=== PATIENT | male | born 1970 | race Caucasian/White ===

== ENCOUNTER 2017-03-19 17:17 | Emergency (ER) | payer OTHER ==
[~2017-03-19] VITALS: Ht 185.4 cm; Wt 117.9 kg
[~2017-03-19 17:17] MED LIST: LISINOPRIL 20MG20 MG PO; VICOPROFEN 7.51 TAB PO
--- NOTE | 2017-03-19 17:40 | Emergency Room Report ---
History of Present Illness Time Seen by [id number] Presenting Problem in Triage Pt arrived:Walked Presenting Problem:PT FELL OFF OF A LADDER 7 FEET, LANDING ON BACK. PT LANDED ON BACK AND HAS RIGHT LOWER BACK PAIN AND HAS AN ABRAISION ON THE BACL OF THE HEAD. 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 N Clinical Suspician of Infection? N Mental Status: 1 - Regular (Normal Baseline) Sepsis Risk:Low Sepsis Risk Have you (or family members/close friends) recently traveled outside the [place]? N If Yes, where/when: Have you had exposure to infectious disease within the past month? N TB? Other? Specify: I READ THE ABOVE TRIAGE WITH THE ONLY DIFFERENCE IS THAT HE IS HURTING MORE ON THE RIGHT LOWER RIBS WITH NO SPINOUS PROCESS TENDERNESS. Mr. Liz is 47 years old white male overweight, he was 7 feet above the ground on a ladder when he fell and landed on the RIGHT side of his trunk. He complains of a stinging pain or for the RIGHT lower ribs. He he admits to hitting his head with no loss of consciousness. He denies having neck pain or back pain or lower back pain. His best comfortable position is standing with his knees flexed and leaning on the bed and holding his side. There are no weakness or numbness involving the lower extremities there is no loss of urine or bowel control. There is no chest wall TRAUMA No hematemesis or hemoptysis. Source patient, RN notes reviewed, family Exam Limitations no limitations ALLERGIES Coded Allergies: No Known Allergies (05/03/16) Home Medications Reported Medications LISINOPRIL (Lisinopril) 20 MG PO DAILY History Medical History General CAD? No Angina: No SD: No Hypertension? Yes Hyperlipidemia? No CHF? No DVT? No PE? No COPD? No Asthma? No Anemia? No GERD? No Gastric ulcers? No GI Bleed? No Hernia? No Thyroid Problems? No Hypothyroidism? No CVA? No Seizures? No Diabetes? No Renal Insuffiency? No End Stage Renal Disease? No UTI? No Stones? No BPH? No GB Disease: No Nephritic Syndrome? No Asplenia? No Hepatitis? No Sickle Cell Disease? No Arthritis? No Migraines? No Cataracts? No Glaucoma? No MRSA? No HIV? No TB? No Anxiety? No Depression? No Cancer? No More? No Immunization Hx Ped.Immunizations UTD No DT/Tetanus UNKNOWN Surgical Hx Previous Surgery?Y ADNOIDS LT KNEE RT KNEE Social History Smoking Hx Smoker: Never Smoker Tobacco: No Alcohol Alcohol: No Review of Systems All Other Systems Reviewed and Negative Constitutional no symptoms reported Eyes no symptoms reported ENT no symptoms reported. Respiratory see HPI (RIGT RIB PAIN ) Cardiovascular no symptoms reported Gastrointestinal no symptoms reported Genitourinary no symptoms reported. Musculoskeletal see HPI (NO BACK PAIN) Skin no symptoms reported Psychiatric/Neurological no symptoms reported Physical Exam Vital Signs Vital Signs Date Time Temp Pulse Resp B/P Pulse O2 O2 Flow FiO2 Ox Delivery Rate 03/19 193 16 03/19 1924 94 16 136/70 94 03/19 1812 89 18 145/71 98 03/19 1808 16 03/19 1741 16 03/19 1721 97.6 93 16 155/84 97 - WBC >12,000 or <4,000 or 10% bands? 2 or more SIRS Criteria Met? B/P:155/84 MAP:107 Creatinine >2.0? UA output<0.5ml/kg/hr for 2 hrs? Platelet count >100,000? Lactate >2.0mmol/1? INR >1.2 or PTT > than 60 sec? Evidence of Organ Dysfunction? Provider documented clinical suspician of infection? N Sepsis Criteria Count: 1 Sepsis Risk: Low Sepsis Risk General Appearance normal appearance, WD/WN, no apparent distress Eye Exam - bilateral eye normal exam, bilateral eye PERRL, bilateral eye EOMI Ear, Nose, Throat hearing grossly normal, normal ENT inspection Neck normal inspection (NO SPINOUS PROCESS TENDERNESS), non-tender, supple, full range of motion Respiratory Status Yes: trachea midline, chest symmetrical, non tender chest. No: respiratory distress. Lung Sounds bilateral: normal breath sounds, lungs clear. 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 No Results/Orders Laboratory Tests 03/19/175: Sodium 141, Potassium 3.8, Chloride 103, Carbon Dioxide 30, BUN 21 H, Creatinine 1.6 H, Estimated Creat Clear 94, Estimated GFR (MDRD) 46, Glucose 115 H, Calcium 9.0, Total Bilirubin 0.7, AST 38 H, ALT 53, Alkaline Phosphatase 93, Total Protein 7.9, Albumin 3.9, Globulin 4.0 H, Albumin/ Globulin Ratio 1.0 L, WBC 8.4, RBC 5.49, Hgb 16.4, Hct 47.9, MCV 87.2, RDW 12.5 , Plt Count 251, MPV 7.0 L, Gran % 77.2, Gran # 6.5, Lymphocytes % 16.0, Monocytes % 5.3, Eosinophils % 1.2, Basophils % 0.3, Lymphocytes # 1.3, Monocytes # 0.5, Eosinophils # 0.1, Basophils # 0.0, PUBS MCHC 34.2, MCH 29.8 Current Medication Orders Sig/Lucie Start time Last Medication Dose Route Stop Time Status Admin Ondansetron HCl 0 .STK-MED ONE 03/19 1931 DC .ROUTE Hydromorphone HCl 1 MG ONCE ONE 03/19 1930 DC 03/19 IV 03/19 Hydromorphone HCl 0 .STK-MED ONE 03/19 1930 DC .ROUTE Ondansetron HCl 4 MG ONCE ONE 03/19 1930 DC 03/19 IV 03/19 Morphine Sulfate 2 MG ONCE ONE 03/19 1815 DC 03/19 IV 03/19 Morphine Sulfate 0 .STK-MED ONE 03/19 1805 DC .ROUTE Morphine Sulfate 2 MG ONCE ONE 03/19 1745 DC 03/19 IV 03/19 Ondansetron HCl 4 MG ONCE ONE 03/19 1745 DC 03/19 IV 03/19 Ondansetron HCl 0 .STK-MED ONE 03/19 1740 DC .ROUTE Morphine Sulfate 0 .STK-MED ONE 03/19 1739 DC .ROUTE Sodium Chloride 10 ML PRN PRN 03/19 1730 AC 03/19 IV 03/20 1729 1740 Orders Procedure Date/time Status DIET-NOTHING BY MOUTH 03/[address] ABD & PELVIS W/ CONTRAST 03/[address] ABD/PELVIS REQ 03/[address] SCAN REQUEST 03/19 1738 Complete [id number] VIEWS 03/19 1738 Active URINALYSIS/COMPLETE 03/19 1738 Active CBC WITH AUTO DIFF 03/19 1738 Complete CHEM 12 PROFILE 03/[address] HEAD W/O CONTRAST 03/[address] CERVICAL SPINE W/O CONT. 03/[address] HEAD REQ 03/19 1729 Active IV SALINE LOCK 03/19 1729 Active XRAY/CT/US XRAY/CT/US XRAY rib XR interpretation by reviewed by me Xray Results no fracture seen Departure Departure Time of Disposition 1938 Disposition DC Home or Self Care(routine) Clinical Impression Primary Impression: Multiple transverse process fractures Condition STABLE Additional Instructions I discussed the x rays with MR Liz, He is aware of the fractures, need to observe for radiation to the legs or loss of urine or bowel control. SOA or hemoptysis to return. Rest Ice Hydrocodone follow up with pcp in AM Discharge Counseling Counseled pt/family regarding diagnosis, test results, R/B of controlled subst., medications/RX, home care, follow up needs Prescriptions Current Visit Scripts HYDROCODONE/ACETAMINOPHEN (Hydrocodon-Acetaminoph 7.5-325) 1 TAB PO Q8HP PRN pain #15 TAB ED Critical Care Critical Care No If Critical Care minutes are documented, the time involved in the performance of seperately reportable procedures was not counted toward critical care time documented. I directly delivered medical care to this critically ill and/or injured patient. Timely evaluation and treatment was necessary to address the significant organ system(s) dysfunction present in this patient. at 1942
[2017-03-19 17:45] LABS: HEMOGLOBIN 16.4 g/dL (14.1-18.0); LYMPH # 1.3 K/mm3 (0.7-4.5)
[2017-03-19] MEDS ORDERED: HYDROCODONE-APA1 TA2 PO (19:42)
[2017-03-19 19:55] VITALS: BP 120/74
--- NOTE | 2017-03-20 06:01 | RADIOLOGY REPORT PS360 ---
[id number] VIEWS HISTORY: Right rib and chest pain following injury FALL ORDERING PHYSICIAN: Fernanda Waters MD PATIENT AGE: 47 years COMPARISON: None FINDINGS: A frontal view of the chest shows no acute finding. There is some mild right basilar atelectasis Multiple views of the right ribs were obtained. There are nondisplaced fractures of the right fifth, sixth, seventh, and eighth ribs laterally. IMPRESSION: Nondisplaced right rib fractures. No obvious pneumothorax
--- NOTE | 2017-03-20 06:01 | RADIOLOGY REPORT PS360 ---
CT HEAD W/O CONTRAST HISTORY: Pain following injury, blunt trauma, contusion or hematoma, hit back of head with contusion, FALL ORDERING PHYSICIAN: Fernanda Waters MD PATIENT AGE: 47 years COMPARISON: None TECHNIQUE: Axial images obtained without contrast. Brain and bone windows reviewed. FINDINGS: No midline shift, mass effect, intracranial hemorrhage, hydrocephalus, or extra-axial fluid collection is evident. The calvarium has an unremarkable appearance. No mastoid effusion. There is mild mucosal thickening of the right anterior ethmoids and frontal sinus. IMPRESSION: No acute intracranial findings.
--- NOTE | 2017-03-20 06:04 | RADIOLOGY REPORT PS360 ---
CT CERVICAL SPINE W/O CONT INDICATION: Neck pain following injury, hit back of head with neck pain, contusion FALL ORDERING PHYSICIAN: Fernanda Waters MD PATIENT AGE: 47 years COMPARISON: None TECHNIQUE: Axial images are obtained without contrast. Sagittal and coronal reformatted images are reviewed as well. FINDINGS: Normal alignment. No acute fracture or dislocation. No prevertebral soft tissue swelling. Mild degenerative disc disease C2-C3 with right-sided uncovertebral hypertrophy. Scattered small nodes are present in the neck. Lung apices are clear. IMPRESSION: 1. No acute fracture. 2. Mild cervical spondylosis
--- NOTE | 2017-03-20 06:11 | RADIOLOGY REPORT PS360 ---
CT ABD PELVIS W/ CONTRAST CLINICAL INDICATION: Abdominal pain following blunt trauma, right flank pain FALL ORDERING PHYSICIAN: Fernanda Waters MD PATIENT AGE: 47 years COMPARISON: None TECHNIQUE: Axial images obtained with sagittal and coronal reformats. PROCEDURE: Oral Contrast: None IV Contrast: 75 mL is Isovue-370 IV. FINDINGS: Lower thorax: Small hiatal hernia. ABDOMEN: Liver: No masses or biliary dilatation. Gallbladder: Nondistended. No radio opaque stones. Pancreas: No masses or peripancreatic fluid collections. Spleen: Unremarkable. Adrenals: Unremarkable Kidneys/ureters: 1.7 cm left renal hypodensity compatible with a cyst. Stomach bowel: Mild diverticulosis. No evidence of diverticulitis. Small umbilical hernia containing fat Appendix: No evidence of appendicitis. PELVIS: Reproductive: Unremarkable Bladder: Nondistended. No obvious stones or masses. ABDOMEN & PELVIS: Peritoneum: No abnormal fluid collections. No obvious inflammatory changes. No free air. Lymph nodes: No enlarged lymph nodes apparent. Vasculature: No evidence of abdominal aortic aneurysm. No retroperitoneal hemorrhage evident. Bones: There is a nondisplaced acute right seventh rib fracture laterally. Old rib fractures are present involving the right eighth, ninth, and 10th ribs anterolaterally. There is an acute nondisplaced fracture involving the right L1, L2, and L3 transverse processes. A small screw is present with initial tuberosity on the left. There is mild superior depression of the L2 vertebral body endplate anteriorly possibly old IMPRESSION: 1. Acute nondisplaced fractures of the right seventh rib as well as a right L1, L2, and L3 transverse processes. 2. No acute intra-abdominal or pelvic pathology apparent 3. Other nonacute findings as described above. 4. Probable old compressive/small node changes of L2 superior endplate. MRI may confirm if clinically warranted
[2017-03-23] MEDS ORDERED: COLACE100 MG PO (10:34)
== END 2017-03-19 19:56 | disposition home or self-care (01) ==
LOC: ER 17:17
PROVIDERS: Emergency Medicine
DX: S32.019A Unspecified fracture of first lumbar vertebra, initial encounter for closed fracture (principal); S32.029A Unspecified fracture of second lumbar vertebra, initial encounter for closed fracture; S32.039A Unspecified fracture of third lumbar vertebra, initial encounter for closed fracture; W11.XXXA Fall on and from ladder, initial encounter; Y92.019 Unspecified place in single-family (private) house as the place of occurrence of the external cause; I10 Essential (primary) hypertension; S22.41XA Multiple fractures of ribs, right side, initial encounter for closed fracture
CPT/HCPCS: J2405; Q9967

== ENCOUNTER 2017-03-19 23:07 | Observation (INO) | payer OTHER ==
[~2017-03-19] VITALS: Ht 185.4 cm; Wt 120.8 kg
[~2017-03-19 23:07] MED LIST changes: +HYDROCODONE-APA1 TA2 PO
[2017-03-19 23:10] VITALS: BP 115/71
[2017-03-19 23:27] LABS: HEMOGLOBIN 16.4 g/dL (14.1-18.0); LYMPH # 1.1 K/mm3 (0.7-4.5)
--- NOTE | 2017-03-19 23:51 | Emergency Room Report ---
History of Present Illness Time Seen by [id number] Presenting Problem in Triage Pt arrived:Walked Presenting Problem:WAS SEEN IN ER EARLIER AFTER FALLING 7FT OFF A LADDER. WAS D.C WITH STABLE FX IN THE L1-L3. GOT HOME AND APPROX 2215, HE REPORTED BEING EXTREMELY SOA AND FELT LIKE HE WAS GOING TO PASS OUT. 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 N Clinical Suspician of Infection? N Mental Status: 1 - Regular (Normal Baseline) Sepsis Risk:Possible Sepsis Risk Have you (or family members/close friends) recently traveled outside the [place]? N If Yes, where/when: Have you had exposure to infectious disease within the past month? N TB? Other? Specify: Source patient, RN notes reviewed, family, RN/MD Exam Limitations no limitations Comment This is a 47-year-old gentleman returning to the emergency room after being seen here hours ago, complaining with shortness of breath. Patient was initially seen in this ER after falling off of a roof, 7-8 feet high, while mounting [place] decorations. Patient was initially discharged home with a diagnosis of minimally displaced L1-L2-L3 LEFT lateral transverse processes fracture. stated that he woke up short of breath, worse with deep inspirations, complaining with pain in the LEFT lower ribs. Previous CT scans of head without contrast, cervical spine without contrast and abdomen and pelvis with IV contrast were negative. Rib x-rays previously ordered showed no rib fractures, no pneumothorax. ALLERGIES Coded Allergies: No Known Allergies (03/20/17) Home Medications Active Scripts HYDROCODONE/ACETAMINOPHEN (Hydrocodon-Acetaminoph 7.5-325) 1 TAB PO Q8HP PRN pain #15 TAB Prov: 03/19/17 Reported Medications LISINOPRIL (Lisinopril) 20 MG PO DAILY History Medical History General CAD? No Angina: No [place]: No Hypertension? Yes Hyperlipidemia? No CHF? No DVT? No PE? No COPD? No Asthma? No Anemia? No GERD? No Gastric ulcers? No GI Bleed? No Hernia? No Thyroid Problems? No Hypothyroidism? No CVA? No Seizures? No Diabetes? No Renal Insuffiency? No End Stage Renal Disease? No UTI? No Stones? No BPH? No GB Disease: No Nephritic Syndrome? No Asplenia? No Hepatitis? No Sickle Cell Disease? No Arthritis? No Migraines? No Cataracts? No Glaucoma? No MRSA? No HIV? No TB? No Anxiety? No Depression? No Cancer? No More? No Immunization Hx DT/Tetanus UNKNOWN Surgical Hx Previous Surgery?Y ADNOIDS LT KNEE RT KNEE Social History Smoking Hx Smoker: Never Smoker Tobacco: No Alcohol Alcohol: No Review of Systems All Other Systems Reviewed and Negative Respiratory shortness of breath Cardiovascular chest pain Gastrointestinal abdominal pain (LEFT upper quadrant pain) Physical Exam Vital Signs Vital Signs Date Time Temp Pulse Resp B/P Pulse O2 O2 Flow FiO2 Ox Delivery Rate 03/20 0020 81 03/20 0020 98.1 81 20 114/61 03/20 0020 96 ROOM AIR 03/20 0007 98.1 81 20 114/61 96 2 03/20 0006 81 20 114/61 96 2 03/19 2344 20 03/19 2319 20 03/19 2310 98.1 95 20 115/71 97 2 General Appearance normal appearance, WD/WN, moderate distress Respiratory Status Yes: trachea midline, chest symmetrical, tender on palpation (LEFT lower ribs). No: respiratory distress. Lung Sounds bilateral: normal breath sounds, lungs clear. 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 No Comment 9-case discussed with Dr. Baxter, covering for Dr. Waterman, advised of patient' s presentation and findings, lack of response to oral pain killers previously provided. Dr. Baxter agreeable with hospitalization, plan is to continue IV pain medications and reevaluate in the morning. Patient denies medically stable at this time, and clinically improving. Differential diagnosis: Solid organ injury, lung contusion, pneumothorax, rib fracture, straight laceration, retroperitoneal hemorrhage, anxiety reaction, etc. Care turned over to Dr. Baxter at this time, I will write temporary admission orders per hospital protocol. Upon patient's presentation to floor the unit nurse will contact PCP again in order to obtain full inpatient admission orders. Results/Orders Laboratory Tests 03/19/172319: Sodium 140, Potassium 4.4, Chloride 102, Carbon Dioxide 31, BUN 28 H, Creatinine 1.5 H, Estimated Creat Clear 100, Estimated GFR (MDRD) 50, Glucose 147 H, Calcium 9.2, Total Bilirubin 0.6, AST 31, ALT 47, Alkaline Phosphatase 88, Total Protein 8.0, Albumin 3.9, Globulin 4.1 H, Albumin/Globulin Ratio 1.0 L, Amylase 39, Lipase 125, WBC 14.4 H, RBC 5.59, Hgb 16.4, Hct 48.9, MCV 87.5, RDW 12.6, Plt Count 233, MPV 7.1 L, Gran % 87.2 H, Gran # 13.2 H, Total Counted 100, Lymphocytes % 7.0 L, Monocytes % 5.2, Eosinophils % 0.3, Basophils % 0.3, Neutrophils 90 H, Lymphocytes (Manual) 9 L, Lymphocytes # 1.1, Monocytes (Manual) 1 L, Monocytes # 0.8, Eosinophils # 0.0, Basophils # 0.0, Platelet Estimate NORMAL, Anisocytosis 1+, PUBS MCHC 33.6, MCH 29.4 Current Medication Orders Sig/Lucie Start time Last Medication Dose Route Stop Time Status Admin Cyclobenzaprine HCl 10 MG TIDP PRN 03/20 0015 UNV PO Hydromorphone HCl 1 MG ONCE ONE 03/19 2345 DC 03/19 IV 03/19 2346 234 Morphine Sulfate 4 MG Q2HP PRN 03/19 2345 UNV 03/20 IV 0150 Ondansetron HCl 4 MG Q4HP PRN 03/19 2345 UNV IV Promethazine HCl 12.5 MG Q4HP PRN 03/19 2345 UNV IV Sodium Chloride 1,000 ML .Q8H 03/19 2345 UNV IV Sodium Chloride 25 ML PRN PRN 03/19 2345 UNV IV Hydromorphone HCl 0 .STK-MED ONE 03/19 2342 DC .ROUTE Sodium Chloride 1,000 ML .STK-MED ONE 03/19 2335 DC IV Hydromorphone HCl 1 MG ONCE ONE 03/19 2330 DC 03/19 IV 03/19 2331 231 Ondansetron HCl 4 MG ONCE ONE 03/19 2330 DC 03/19 IV 03/19 2331 2332 Sodium Chloride 10 ML PRN PRN 03/19 2330 AC IV 03/20 231 Sodium Chloride 1,000 ML .Q1H1M 03/19 2330 DC 03/19 IV 03/20 0030 2332 Sodium Chloride 10 ML PRN PRN 03/19 2330 AC IV 03/20 232 Hydromorphone HCl 0 .STK-MED ONE 03/19 2319 DC .ROUTE Ondansetron HCl 0 .STK-MED ONE 03/19 2319 DC .ROUTE Orders Procedure Date/time Status DIET-REGULAR ( TOLERATED) 03/20 B Active CBC WITH AUTO DIFF 03/20 600 Active CHEM 12 PROFILE 03/20 600 Active Decision to admit 03/19 2349 Active CHEST(2 VIEWS-NOT PORTABLE) 03/19 2325 Active LIPASE 03/19 2322 Complete CBC WITH AUTO DIFF 03/19 2322 Complete CHEM 12 PROFILE 03/19 2322 Complete AMYLASE 03/19 2322 Complete IV SALINE LOCK 03/19 2321 Active DIFFERENTIAL-WBC 03/19 2320 Complete ADMIT PATIENT 03/19 UNK Active VITAL SIGNS 03/19 UNK Active POM NURSE MARÍA ELENA HOSE ORDER 03/19 UNK Active CODE STATUS 03/19 UNK Active PATIENT ACTIVITY ORDER 03/19 UNK Active XRAY/CT/US XRAY/CT/US XRAY chest XR interpretation by reviewed by vt Xray Results no infiltrates, normal heart size, normal lung inflation rylee, no pneumothorax Departure Departure Time of Disposition 2350 Disposition Still a Patient Clinical Impression Primary Impression: Intractable low back pain Secondary Impressions: Lumbar transverse process fracture Qualifiers: Encounter type: initial encounter Fracture type: closed Qualified Code: S32.009A - Unspecified fracture of unspecified lumbar vertebra, initial encounter for closed fracture Condition STABLE Referrals Noemí RAMSAY,Ishmael Stephenson (Family) ED Critical Care Critical Care No at 0531
[2017-03-20] VITALS (8 sets, daily range): BP systolic 109–151; BP diastolic 61–93
[2017-03-20 04:29] LABS: NEUTROPHILS 90 % (42-76)
[2017-03-20 06:58] LABS: LYMPH # 1.4 K/mm3 (0.7-4.5); LYMPH % 14.6 % (10-50)
[2017-03-20 07:14] LABS: HEMOGLOBIN 13.9 g/dL (14.1-18.0)
--- NOTE | 2017-03-20 07:44 | PHARMACY CLINIC NOTE ---
Patient Demographics Patient Demographics Admission date: 03/20/17 Date: 03/20/17 Time: 0744 Allergies Coded Allergies: No Known Allergies (03/20/17) HEIGHT- FT: 6 IN: 1.00 K.771 VTE General Information Labs: Laboratory Tests 03/20 03/19 0625 2320 Hematology Hgb (14.1 - 18.0 g/dL) 13.9 L 16.4 Hct (42.0 - 52.0 %) 41.1 L 48.9 Plt Count (142 - 424 K/mm3) 189 233 Disclaimer The following section includes nursing documentation that has been pulled in for pharmacy review. Patient's VTE score: 0 Patient's VTE Risk: VERY LOW RISK Clinical trial participant? No VTE prophylaxis NQF [id number] VTE prophylaxis ordered? Yes Type of prophylaxis/treatment: MARÍA ELENA at 0744
--- NOTE | 2017-03-20 09:05 | HISTORY AND PHYSICAL REPORT ---
Demographics: Admit date: 03/19/17 Chief complaint: back pain PRIMARY DIAGNOSIS: INTRACTABLE LOW BACK PAIN Allergies: Coded Allergies: No Known Allergies (03/20/17) History of present illness: History of present illness: 47-year-old male presented to the ER 2. Patient first reported to the ER status post fall from a stepladder 7-8 foot. Fractures noted to the L1-L2 and L3 and RIGHT seventh rib fracture. Patient was discharged home while homeless sitting in a recliner taken a nap and woke up short of breath and severe pain. Patient presented back to the ER for further workup. Patient was admitted for irretractable pain. No bowel or bladder issues noted Past medical history: Family HX Diabetes No CAD No Hypertension Yes Hyperlipidemia Yes Cancer Yes TB No Immunization HX DT/Tetanus UNKNOWN Flu Refused Pneumonia Never Had TB Test in last year Yes Result Negative General CAD? No Angina: No LA: No Hypertension? Yes Hyperlipidemia? No CHF? No DVT? No PE? No COPD? No Asthma? No Anemia? No GERD? No Gastric ulcers? No GI Bleed? No Hernia? No Thyroid Problems? No Hypothyroidism? No CVA? No Seizures? No Diabetes? No Renal Insuffiency? No UTI? No Stones? No BPH? No GB Disease: No Nephritic Syndrome? No Asplenia? No Hepatitis? No Sickle Cell Disease? No Arthritis? No Migraines? No Cataracts? No Glaucoma? No MRSA? No HIV? No TB? No Anxiety? No Depression? No Cancer? No More? No Past Surgical HX Previous Surgery?Y ADNOIDS LT KNEE RT KNEE Current home meds: Active Scripts HYDROCODONE/ACETAMINOPHEN (Hydrocodon-Acetaminoph 7.5-325) 1 TAB PO Q8HP PRN PAIN #15 TAB Prov: 03/19/17 Reported Medications LISINOPRIL (Lisinopril) 20 MG PO DAILY Social Hx: Smoking HX Tobacco No Are you/the child exposed to second-hand smoke: No Alcohol Alcohol: No Hx of Drug Use Drug Use? No Review of systems: Constitutional No: no symptoms reported. Respiratory see HPI, shortness of breath. Cardiovascular No no symptoms reported Gastrointestinal/Abdominal No no symptoms reported Genitourinary No: no symptoms reported. Musculoskeletal see HPI, back pain, joint pain, joint swelling, muscle pain, muscle stiffness. Skin No: no symptoms reported. Neurological No: no symptoms reported. Exam: Lab data for last 24 hours: Laboratory Tests 03/20/17 0625: Sodium 141, Potassium 4.0, Chloride 105, Carbon Dioxide 31, BUN 27 H, Creatinine 1.2, Estimated Creat Clear 129, Estimated GFR (MDRD) 65, Glucose 102, Calcium 8.4 L, Total Bilirubin 0.7, AST 22, ALT 38, Alkaline Phosphatase 73, Total Protein 6.6, Albumin 3.2 L, Globulin 3.4 H, Albumin/Globulin Ratio 0.9 L, WBC 9.5, RBC 4.73, Hgb 13.9 L, Hct 41.1 L, MCV 86.8, RDW 12.7, Plt Count 189, MPV 7.2 L, Gran % 77.1, Gran # 7.4, Lymphocytes % 14.6, Monocytes % 7.5, Eosinophils % 0.6, Basophils % 0.2, Lymphocytes # 1.4, Monocytes # 0.7, Eosinophils # 0.1, Basophils # 0.0, PUBS MCHC 33.3, MCH 28.9 03/19/170: Sodium 140, Potassium 4.4, Chloride 102, Carbon Dioxide 31, BUN 28 H, Creatinine 1.5 H, Estimated Creat Clear 100, Estimated GFR (MDRD) 50, Glucose 147 H, Calcium 9.2, Total Bilirubin 0.6, AST 31, ALT 47, Alkaline Phosphatase 88, Total Protein 8.0, Albumin 3.9, Globulin 4.1 H, Albumin/Globulin Ratio 1.0 L, Amylase 39, Lipase 125, WBC 14.4 H, RBC 5.59, Hgb 16.4, Hct 48.9, MCV 87.5, RDW 12.6, Plt Count 233, MPV 7.1 L, Gran % 87.2 H, Gran # 13.2 H, Total Counted 100, Lymphocytes % 7.0 L, Monocytes % 5.2, Eosinophils % 0.3, Basophils % 0.3, Neutrophils 90 H, Lymphocytes (Manual) 9 L, Lymphocytes # 1.1, Monocytes (Manual) 1 L, Monocytes # 0.8, Eosinophils # 0.0, Basophils # 0.0, Platelet Estimate NORMAL, Anisocytosis 1+, PUBS MCHC 33.6, MCH 29.4 Admission vital signs: 1ST Vital Signs Result Date Time Pulse Ox 97 03/19 2310 B/P 115/71 03/19 2310 O2 Flow Rate 2 03/19 2310 Temp 98.1 03/19 2310 Pulse 95 03/19 2310 Resp 20 03/19 2310 O2 Delivery ROOM AIR 03/20 0020 Exam General appearance: normal appearance, alert, active, awake, no acute distress Eyes: normal exam ENT: normal exam Neck: normal inspection, no carotid bruit, full range of motion Cardiovascular: normal exam, normal sinus rhythm Respiratory: normal exam, aerating well, clear to auscultation, chest non- tender, good air movement, no respiratory distress ABD: soft, no tenderness, bowel sounds present, distended Genitourinary: normal voiding & quantity Extremities: normal exam, moves all, normal capillary refill, no peripheral edema, warm Musculoskeletal: normal exam Skin: normal exam, intact, warm, cut to the back of the head Neuro: normal exam, alert, intact, no deficit, oriented Plan: Problem List 1. Multiple transverse process fractures 2. Intractable low back pain 3. Lumbar transverse process fracture 4. Rib fracture Plan: Dr. Dowd will round later today, MRI to evaluate fractures, pain control, add steroids, ultrasound abdomen at 0904
--- NOTE | 2017-03-20 13:01 | RADIOLOGY REPORT PS360 ---
MRI-L-SPINE W/O, MRI-3D RENDERING/MYELOGRAM HISTORY: Right-sided back pain following injury with abnormal CT scan in lumbar fracture FX VERTEBRAE ORDERING PHYSICIAN: Ishmael Dowd MD PATIENT AGE: 47 years COMPARISON: CT scan of 03/19/2017 TECHNIQUE: Standard multiplanar multiecho sequences are performed without contrast. 3-D MIP and myelographic images are also rendered and reviewed FINDINGS: There is normal alignment. Spinal cord ends at the T12-L1 level. L1-L2: Mild degenerative disc disease with anterior osteophytes. Nondisplaced fracture involves the right L1 transverse process. There is mild wedging of the superior endplate of L2 anteriorly with a Schmorl's node. This does not appear acute. No retropulsed fragments. L2-L3: Nondisplaced transverse process fracture involves L2 on the right. L3-L4: Nondisplaced fracture involves the tip of the right L3 transverse process. L4-5: Mild concentric bulging disc with mild bilateral foraminal narrowing. L5-S1: Degenerative disc disease with bulging disc and facet hypertrophic change. Endplate changes are present. There is moderate bilateral foraminal narrowing. IMPRESSION: 1. Nondisplaced fractures of the right L1, L2, and L3 transverse process. 2. No acute compression fractures evident. 3. Schmorl's node with minimal superior endplate compressive changes of L1-2 which are chronic. 4. Lumbar spondylosis with degenerative disc disease and bulging disc with bilateral foraminal narrowing at L4-L5 and L5-S1
--- NOTE | 2017-03-20 13:51 | RADIOLOGY REPORT PS360 ---
US ABD(COMPLETE-MULTI ORGANS HISTORY: s/p fall, distended ORDERING PHYSICIAN: Ishmael Dowd MD PATIENT AGE: 47 years COMPARISON: None FINDINGS: PANCREAS:Poorly demonstrated due to overlying bowel gas and patient body habitus LIVER:Fatty liver. No focal liver lesion or perihepatic fluid or biliary dilatation. RIGHT KIDNEY:Unremarkable. Normal size and echogenicity. No hydronephrosis LEFT KIDNEY:Unremarkable. No hydronephrosis. Normal size and echogenicity. GALLBLADDER:Difficult to visualize due to overlying bowel gas and body habitus. No obvious gallstones,or pericholecystic fluid. Common bile duct is normal at 4 mm. Gallbladder wall is somewhat thickened at 5 mm nonspecific. There may be some sludge within the gallbladder AORTA:No evidence of aneurysmal dilatation. SPLEEN:Unremarkable. Normal size and echogenicity ASCITES:None demonstrated. IMPRESSION: 1. Fatty liver. 2. Possible gallbladder sludge with minimal gallbladder wall thickening.
--- NOTE | 2017-03-20 14:38 | RADIOLOGY REPORT PS360 ---
CHEST(2 VIEWS-NOT PORTABLE) HISTORY: Chest pain pain ORDERING PHYSICIAN: Ishmael Dowd MD PATIENT AGE: 47 years COMPARISON: None available FINDINGS: The cardiomediastinal silhouette and pulmonary vascularity are within normal limits. The lungs are clear without infiltrates, suspicious nodules, or pleural effusions. No acute bony abnormalities. IMPRESSION: Negative chest, no acute finding
--- OUTSIDE RECORDS SUMMARY | 2017-03-20 16:33 | External Medical Summary Rpt | CCD ---
Author Author , JAROD OLIVERA Address Unknown Phone [email or web address] Purpose Continuity of Care Document - 03-19-2017 through 2016 Problems Code Diagnosis DOS Provider Status [id number] S83.92XA SPRAIN OF UNSPECIFIED SITE OF LEFT KNEE, INITIAL ENCOUNTER Results Labs Lab Lab Date Result Refere Interp Status Commen Order Detail nces retati t Range on Comprehensive metabolic panel (03-19-2017 17:25) Serum = 1.0 1.1-1.8 complet or 017 ed plasma 17:25 albumin /globul in mass ra Protein = 7.9 6.4-8.2 complet total 017 gm/dL ed ser/charly 17:25 s ALT = 53 12-78 complet (SGPT) 017 U/L ed ser/charly 17:25 s Serum = 38 15-37 complet or 017 U/L ed plasma 17:25 asparta te aminotr ansfera Serum = 141 136-145 complet sodium 017 mmoL/L ed measure 17:25 ment Serum = 3.8 3.5-5.1 complet potassi 017 mmoL/L ed um 17:25 measure ment Serum = 115 74-106 complet or 017 mg/dL ed plasma 17:25 glucose measure ment (mas Serum = 4.0 1.3-3.2 complet globuli 017 gm/dL ed n 17:25 measure ment (mass/v olume) Estimat = 46 >60 complet ed 017 ML/MIN ed glomeru 17:25 lar filtrat ion rate (GF Comment: REFERENCE RANGE: >60 ML/MIN/1.73 SQUARE METERS Comment: If this patient is -Vietnamese, then multiply the Comment: result by 1.210. Estimat = 94 50-200 complet ion of 017 ML/MIN ed creatin 17:25 ine renal clearan ce Serum = 1.6 0.70-1. complet or 017 mg/dL 30 ed plasma 17:25 creatin ine measure ment ( Carbon = 30 21.0-32 complet dioxide 017 mmoL/L .0 ed 17:25 measure ment Serum = 103 98-107 complet or 017 mmoL/L ed plasma 17:25 chlorid e measure ment (mo Serum = 9.0 8.5-10. complet or 017 mg/dL 1 ed plasma 17:25 calcium measure ment (mas Serum = 21 7-18 complet or 017 mg/dL ed plasma 17:25 urea nitroge n measure men Serum = 0.7 0.2-1.0 complet or 017 mg/dL ed plasma 17:25 total bilirub in measure m Serum = 93 46-116 complet or 017 U/L ed plasma 17:25 alkalin e phospha tase swati Serum = 3.9 3.4-5.0 complet or 017 gm/dL ed plasma 17:25 albumin measure ment (mas CBC w auto diff (03-19-2017 17:25) Blood = 8.4 4.8-10. complet leukocy 017 K/MM3 8 ed lawrence 17:25 count (number /volume ) Automat = 12.5 11.5-17 complet ed 017 % .5 ed erythro 17:25 cyte distrib ution width Red = 5.49 4.6-6.2 complet blood 017 M/mm3 ed cell 17:25 count Blood = 251 142-424 complet platele 017 K/mm3 ed t count 17: Automat = 7.0 7.4-10. complet ed 017 fl 4 ed blood 17:25 platele t mean volume swati [place] % = 5.3 % 1.7-9.3 complet 017 ed 17:25 Absolut = 0.5 0.1-1.0 complet e 017 K/mm3 ed monocyt 17:25 e count Automat = 87.2 82.2-97 complet ed 017 fl .8 ed erythro 17:25 cyte mean corpusc ular v Automat = 34.2 31.8-35 complet ed 017 g/dl .4 ed erythro 17:25 cyte mean corpusc ular h Mean = 29.8 27-31.2 complet corpusc 017 pg ed ular 17:25 hemoglo bin (MCH) determ Lymphoc = 16.0 10-50 complet yte 017 % ed count, 17:25 blood, automat ed Absolut = 1.3 0.7-4.5 complet e 017 K/mm3 ed lymphoc 17:25 yte count Blood = 16.4 14.1-18 complet hemoglo 017 g/dL .0 ed bin 17:25 measure ment (mass/v olum Blood = 47.9 42.0-52 complet hematoc 017 % .0 ed rit 17:25 (volume fractio n) Granulo = 77.2 37.0-80 complet cyte 017 % .0 ed percent 17:25 age Blood = 6.5 1.3-8.0 complet granulo 017 K/mm3 ed cytes 17:25 automat ed count (numb Automat = 1.2 % 0.1-12. complet ed 017 0 ed blood 17:25 eosinop hils/10 0 leukocy t Automat = 0.1 0.0-0.4 complet ed 017 K/mm3 ed blood 17:25 eosinop hil count Baso % = 0.3 % 0.1-2.0 complet 017 ed 17:25 Automat = 0.0 0-0.2 complet ed 017 K/MM3 ed blood 17:25 basophi l count (count/ vo
--- OUTSIDE RECORDS SUMMARY | 2017-03-20 16:33 | External Medical Summary Rpt | CCD ---
Author Author , JAROD OLIVERA Address Unknown Phone [email or web address] Purpose Continuity of Care Document - 03-19-2017 through 2016 Problems Code Diagnosis DOS Provider Status [id number] S83.92XA SPRAIN OF UNSPECIFIED SITE OF LEFT [...] SQUARE METERS Comment: If this patient is -[place]icaraguan, then multiply the Comment: result by 1.210. [...] blood 17:25 platele t mean volume swati [place] % = 5.3 % 1.7-9.3 complet 017 [...]
--- OUTSIDE RECORDS SUMMARY | 2017-03-20 16:34 | External Medical Summary Rpt | CCD ---
Demographics Preferred Language Serbian Marital Status Unknown Druze Affiliation Unknown Race Unknown Ethnic Group Unknown Author Author , JAROD OLIVERA Address Unknown Phone Immunization No patient found.
--- OUTSIDE RECORDS SUMMARY | 2017-03-20 16:34 | External Medical Summary Rpt ---
Author Author [employer], [employer] Organization [employer] Address Unknown Phone Unavailable Results Comprehensive metabolic 2000 panel in Serum or Plasma Observa Value Referen Units Interpr Notes Date tion ce etation Range Albumin/G 1.1 - 1.8 No Low No Mar 19 lobulin informati informati 2016 5:25 [Mass on in on in PM ratio] in source source Serum or data data Plasma Albumin 3.4 - 5.0 gm/dL Normal No Mar 19 [Mass/vol informati 2016 5:25 ume] in on in PM Serum or source Plasma data Alkaline 46 - 116 U/L Normal No Mar 19 phosphata informati 2016 5:25 se on in PM [Enzymati source c data activity/ volume] in Serum or Plasma Bilirubin 0.2 - 1.0 mg/dL Normal No Mar 19 .total informati 2016 5:25 [Mass/vol on in PM ume] in source Serum or data Plasma Urea 7 - 18 mg/dL High No Mar 19 nitrogen informati 2016 5:25 [Mass/vol on in PM ume] in source Serum or data Plasma Calcium 8.5 - mg/dL Normal No Mar 19 [Mass/vol 10.1 informati 2016 5:25 ume] in on in PM Serum or source Plasma data Chloride 98 - 107 mmoL/L Normal No Mar 19 [Moles/vo informati 2016 5:25 lume] in on in PM Serum or source Plasma data Carbon 21.0 - mmoL/L Normal No Mar 19 dioxide, 32.0 informati 2017 5:25 total on in PM [Moles/vo source lume] in data Serum or Plasma Creatinin 0.70 - mg/dL High No Mar 19 e 1.30 informati 2017 5:25 [Mass/vol on in PM ume] in source Serum or data Plasma Creatinin 50 - 200 ML/MIN Normal No Mar 19 e renal informati 2016 5:25 clearance on in PM source predicted data by Cockcroft -Gault formula Estimated >60 ML/MIN No REFERENCE Oct 26 informati RANGE: 2017 5:25 glomerula on in >60 PM r source ML/MIN/1. filtratio data 73 SQUARE n rate METERSIf (GF this patient is -A merican, then multiply theresult by 1.210. Globulin 1.3 - 3.2 gm/dL High No Mar 19 [Mass/vol informati 2016 5:25 ume] in on in PM Serum source data Glucose 74 - 106 mg/dL High No Mar 19 [Mass/vol informati 2016 5:25 ume] in on in PM Serum or source Plasma data Potassium 3.5 - 5.1 mmoL/L Normal No Mar 192016 5:25 [Moles/vo on in PM lume] in source Serum or data Plasma Sodium 136 - 145 mmoL/L Normal No Mar 19 [Moles/vo 2016 5:25 lume] in on in PM Serum or source Plasma data Aspartate 15 - 37 U/L High No Mar 192016 5:25 aminotran on in PM sferase source [Enzymati data c activity/ volume] in Serum or Plasma Alanine 12 - 78 U/L Normal No Mar 19 aminotran 2016 5:25 sferase on in PM [Enzymati source c data activity/ volume] in Serum or Plasma Protein 6.4 - 8.2 gm/dL Normal No Mar 19 [Mass/vol informati 2016 5:25 ume] in on in PM Serum or source Plasma data CBC W Auto Differential panel in Blood Observa Value Referen Units Interpr Notes Date tion ce etation Range Basophils 0 - 0.2 K/MM3 Normal No Mar 192016 5:25 [#/volume on in PM ] in source Blood by data Automated count Basophils 0.1 - 2.0 % Normal No Mar 19 informati 2016 5:25 leukocyte on in PM s in source Blood by data Automated count Eosinophi 0.0 - 0.4 K/mm3 Normal No Mar 19 ls ati 2016 5:25 [#/volume on in PM ] in source Blood by data Automated count Eosinophi 0.1 - % Normal No Mar 19 ls/100 12.0 informati 2016 5:25 leukocyte on in PM s in source Blood by data Automated count Granulocy 1.3 - 8.0 K/mm3 Normal No Mar 19 lawrence 2016 5:25 [#/volume on in PM ] in source Blood by data Automated count Granulocy 37.0 - % Normal No Mar 19 lawrence/100 80.0 informati 2016 5:25 leukocyte on in PM s in source Blood by data Automated count Hematocri 42.0 - % Normal No Mar 19 t [Volume 52.0 inform2016 5:25 on in PM Fraction] source of Blood data Hemoglobi 14.1 - g/dL Normal No Mar 19 n 18.0 informati 2016 5:25 [Mass/vol on in PM ume] in source Blood data Lymphocyt 0.7 - 4.5 K/mm3 Normal No Mar 19 es informati 2016 5:25 [#/volume on in PM ] in source Unspecifi data ed specimen by Automated count Lymphocyt 10 - 50 % Normal No Mar 19 es inform2016 5:25 [#/volume on in PM ] in source Unspecifi data ed specimen by Automated count Erythrocy 27 - 31.2 pg Normal No Mar 19 te mean inform2016 5:25 corpuscul on in PM ar source hemoglobi data n [Entitic mass] Erythrocy 31.8 - g/dl Normal No Mar 19 te mean 35.4 informati 2016 5:25 corpuscul on in PM ar source hemoglobi data n concentra tion [Mass/vol ume] by Automated count Erythrocy 82.2 - fl Normal No Mar 19 te mean 97.8 informati 2016 5:25 corpuscul on in PM ar volume source [Entitic data volume] by Automated count Monocytes 0.1 - 1.0 K/mm3 Normal No Mar 19 inform2016 5:25 [#/volume on in PM ] in source Blood by data Automated count Monocytes 1.7 - 9.3 % Normal No Mar 19 informati 2016 5:25 leukocyte on in PM s in source Blood by data Automated count Platelet 7.4 - fl Low No Mar 19 mean 10.4 informati 2016 5:25 volume on in PM [Entitic source volume] data in Blood by Automated count Platelets 142 - 424 K/mm3 No No Mar 19 informati informati 2016 5:25 [#/volume on in on in PM ] in source source Blood data data Erythrocy 4.6 - 6.2 M/mm3 Normal No Mar 19 lawrence informati 2016 5:25 [#/volume on in PM ] in source Amniotic data fluid Erythrocy 11.5 - % Normal No Mar 19 te 17.5 informati 2017 5:25 distribut on in PM ion width source [Entitic data volume] by Automated count Leukocyte 4.8 - K/MM3 Normal No Mar 19 s 10.8 informati 2017 5:25 [#/volume on in PM ] in source Blood data
--- OUTSIDE RECORDS SUMMARY | 2017-03-20 16:34 | External Medical Summary Rpt | CCD ---
Author Author [employer] Organization [employer] Address Unknown Phone Unavailable Purpose Continuity of Care Document - through 2016
--- OUTSIDE RECORDS SUMMARY | 2017-03-20 16:34 | External Medical Summary Rpt | CCD ---
Demographics Preferred Language Yoruba Marital Status Unknown Druze Affiliation Unknown Race Unknown Ethnic Group Unknown Author Author , JAROD OLIVERA Address Unknown Phone Immunization No patient found.
--- OUTSIDE RECORDS SUMMARY | 2017-03-20 16:34 | External Medical Summary Rpt | CCD ---
Demographics Preferred Language Croatian Marital Status Unknown Muslim Affiliation Unknown Race Unknown Ethnic Group Unknown Author Author , JAROD OLIVERA Address Unknown Phone Immunization No patient found.
--- OUTSIDE RECORDS SUMMARY | 2017-03-20 16:34 | External Medical Summary Rpt | CCD ---
Author Author , JAROD Organization [employer] Address Unknown Phone [email or web address] Purpose Continuity of Care Document - 03-19-2017 through 2016 Results Labs Lab Lab Date Result Refere [...] SQUARE METERS Comment: If this patient is -Kittitian, then multiply the Comment: result by 1.210. [...] blood 17:25 platele t mean volume swati [place] % = 5.3 % 1.7-9.3 complet 017 [...] complet cyte 017 % .0 ed percent 17: age Blood = 6.5 1.3-8.0 complet granulo [...]
--- OUTSIDE RECORDS SUMMARY | 2017-03-20 16:34 | External Medical Summary Rpt | CCD ---
Author Author , JAROD Organization [employer] Address Unknown Phone [email or web address] Purpose Continuity of Care Document - 03-19-2017 [...] SQUARE METERS Comment: If this patient is -Iranian, then multiply the Comment: result by 1.210. [...] blood 17:25 platele t mean volume swati [place] % = 5.3 % 1.7-9.3 complet 017 [...]
--- OUTSIDE RECORDS SUMMARY | 2017-03-20 16:34 | External Medical Summary Rpt | CCD ---
Demographics Preferred Language Macedonian Marital Status Unknown Buddhism Affiliation Unknown Race Unknown Ethnic Group Unknown Author Author , JAROD OLIVERA Address Unknown Phone Immunization No patient found.
--- OUTSIDE RECORDS SUMMARY | 2017-03-20 16:35 | External Medical Summary Rpt | CCD ---
Author Author , JAROD OLIVERA Address Unknown Phone [email or web address] Purpose Continuity of Care Document - 03-19-2017 through 2016 Problems Code Diagnosis DOS Provider Status [id number] M54.5 LOW BACK PAIN S32.009A UNSP FRACTURE OF UNSP LUMBAR VERTEBRA, INIT FOR CLOS FX S83.92XA SPRAIN OF UNSPECIFIED SITE OF LEFT KNEE, INITIAL ENCOUNTER Results Labs Lab Lab Date Result Refere Interp Status Commen Order Detail nces retati t Range on Lipase measurement (03-19-2017 23:20) Lipase = 125 73-393 complet measure 017 U/L ed ment 23:20 Comprehensive metabolic panel (03-19-2017 23:20) Serum = 1.0 1.1-1.8 complet or 017 ed plasma 23:20 albumin /globul in mass ra Protein = 8.0 6.4-8.2 complet total 017 gm/dL ed ser/charly 23:20 s ALT = 47 12-78 complet (SGPT) 017 U/L ed ser/charly 23:20 s Serum = 31 15-37 complet or 017 U/L ed plasma 23:20 asparta te aminotr ansfera Serum = 140 136-145 complet sodium 017 mmoL/L ed measure 23:20 ment Serum 2 = 4.4 3.5-5.1 complet potassi 017 mmoL/L ed um 23:20 measure ment Serum = 147 74-106 complet or 017 mg/dL ed plasma 23:20 glucose measure ment (mas Serum = 4.1 1.3-3.2 complet globuli 017 gm/dL ed n 23:20 measure ment (mass/v olume) Estimat = 50 >60 complet ed 017 ML/MIN ed glomeru 23:20 lar filtrat ion rate (GF Comment: REFERENCE RANGE: >60 ML/MIN/1.73 SQUARE METERS Comment: If this patient is -Swedish, then multiply the Comment: result by 1.210. Estimat = 100 50-200 complet ion of 017 ML/MIN ed creatin 23:20 ine renal clearan ce Serum = 1.5 0.70-1. complet or 017 mg/dL 30 ed plasma 23:20 creatin ine measure ment ( Carbon = 31 21.0-32 complet dioxide 017 mmoL/L .0 ed 23:20 measure ment Serum = 102 98-107 complet or 017 mmoL/L ed plasma 23:20 chlorid e measure ment (mo Serum = 9.2 8.5-10. complet or 017 mg/dL 1 ed plasma 23:20 calcium measure ment (mas Serum = 28 7-18 complet or 017 mg/dL ed plasma 23:20 urea nitroge n measure men Serum = 0.6 0.2-1.0 complet or 017 mg/dL ed plasma 23:20 total bilirub in measure m Serum = 88 46-116 complet or 017 U/L ed plasma 23:20 alkalin e phospha tase swati Serum = 3.9 3.4-5.0 complet or 017 gm/dL ed plasma 23:20 albumin measure ment (mas Amylase ser/plas (03-19-2017 23:20) Amylase = 39 25-115 complet 017 U/L ed ser/charly 23:20 s Comprehensive metabolic panel (03-19-2017 17:25) Serum = [...] SQUARE METERS Comment: If this patient is -Swedish, then multiply the Comment: result by 1.210. [...] complet platele 017 K/mm3 ed t count 17:25 Automat = 7.0 7.4-10. complet ed 017 fl 4 ed blood 17:25 platele t mean volume swati [place] % = 5.3 % 1.7-9.3 complet 017 [...] 17:25 eosinop hils/10 0 leukocy t Automat 1026-2 = 0.1 0.0-0.4 complet ed 017 K/mm3 ed blood 17:25 eosinop hil count Baso % 10--2 = 0.3 % 0.1-2.0 complet 017 ed 17:25 Automat 10-26-2 = 0.0 0-0.2 complet ed 017 K/MM3 ed blood 17:25 basophi l count (count/ vo
--- OUTSIDE RECORDS SUMMARY | 2017-03-20 16:35 | External Medical Summary Rpt | CCD ---
Demographics Preferred Language Upper Sorbian Marital Status Unknown Uatsdin Affiliation Unknown Race Unknown Ethnic Group Unknown Author Author , JAROD Organization [employer] Address Unknown Phone Immunization Unable to retrieve immunization data due to connection failure with Immunization Registry. Please try again later.
--- OUTSIDE RECORDS SUMMARY | 2017-03-20 16:35 | External Medical Summary Rpt | CCD ---
Demographics Preferred Language Greek Marital Status Unknown Synagogue Affiliation Unknown Race Unknown Ethnic Group Unknown Author Author , JAROD Organization [employer] Address Unknown Phone Immunization Unable to retrieve immunization data due to connection failure with Immunization Registry. Please try again later.
--- OUTSIDE RECORDS SUMMARY | 2017-03-20 16:35 | External Medical Summary Rpt | CCD ---
Author Author , JAROD OLIVERA Address Unknown Phone [email or web address] Purpose Continuity of Care Document - 03-19-2017 through 2016 Problems Code Diagnosis DOS Provider Status [id number] M54.5 LOW BACK PAIN S32.009A UNSP FRACTURE [...] SQUARE METERS Comment: If this patient is -Martiniquais, then multiply the Comment: result by 1.210. [...] SQUARE METERS Comment: If this patient is -Martiniquais, then multiply the Comment: result by 1.210. [...] blood 17:25 platele t mean volume swati [place] % = 5.3 % 1.7-9.3 complet 017 [...]
--- OUTSIDE RECORDS SUMMARY | 2017-03-20 16:36 | External Medical Summary Rpt ---
Author Author [employer], [employer] Organization [employer] Address Unknown Phone Unavailable Results Amylase [Enzymatic activity/volume] in Serum or Plasma Observa Value Referen Units Interpr Notes Date tion ce etation Range Amylase 25 - 115 U/L Normal No Mar 19 [Enzymati informati 2017 c on in 11:20 PM activity/ source volume] data in Serum or Plasma Comprehensive metabolic 2000 panel in Serum or Plasma Observa Value Referen Units Interpr Notes Date tion ce etation Range Albumin/G 1.1 - 1.8 No Low No Mar 19 lobulin informati informati 2016 [Mass on in on in 11:20 PM ratio] in source source Serum or data data Plasma Albumin 3.4 - 5.0 gm/dL Normal No Mar 19 [Mass/vol informati 2016 ume] in on in 11:20 PM Serum or source Plasma data Alkaline 46 - 116 U/L Normal No Mar 19 phosphata informati 2017 se on in 11:20 PM [Enzymati source c data activity/ volume] in Serum or Plasma Bilirubin 0.2 - 1.0 mg/dL Normal No Mar 19 .total informati 2016 [Mass/vol on in 11:20 PM ume] in source Serum or data Plasma Urea 7 - 18 mg/dL High No Mar 19 nitrogen informati 2016 [Mass/vol on in 11:20 PM ume] in source Serum or data Plasma Calcium 8.5 - mg/dL Normal No Mar 19 [Mass/vol 10.1 informati 2016 ume] in on in 11:20 PM Serum or source Plasma data Chloride 98 - 107 mmoL/L Normal No Mar 19 [Moles/vo informati 2016 lume] in on in 11:20 PM Serum or source Plasma data Carbon 21.0 - mmoL/L Normal No Mar 19 dioxide, 32.0 informati 2017 total on in 11:20 PM [Moles/vo source lume] in data Serum or Plasma Creatinin 0.70 - mg/dL High No Mar 19 e 1.30 informati 2017 [Mass/vol on in 11:20 PM ume] in source Serum or data Plasma Creatinin 50 - 200 ML/MIN Normal No Mar 19 e renal informati 2016 clearance on in 11:20 PM source predicted data by Cockcroft -Gault formula Estimated >60 ML/MIN No REFERENCE Mar 19 informati RANGE: 2017 glomerula on in >60 11:20 PM r source ML/MIN/1. filtratio data 73 SQUARE n rate METERSIf (GF this patient is -A merican, then multiply theresult by 1.210. Globulin 1.3 - 3.2 gm/dL High No Mar 19 [Mass/vol informati 2016 ume] in on in 11:20 PM Serum source data Glucose 74 - 106 mg/dL High No Mar 19 [Mass/vol informati 2016 ume] in on in 11:20 PM Serum or source Plasma data Potassium 3.5 - 5.1 mmoL/L Normal No Mar 192016 [Moles/vo on in 11:20 PM lume] in source Serum or data Plasma Sodium 136 - 145 mmoL/L Normal No Mar 19 [Moles/vo informati 2016 lume] in on in 11:20 PM Serum or source Plasma data Aspartate 15 - 37 U/L Normal No Mar 192016 aminotran on in 11:20 PM sferase source [Enzymati data c activity/ volume] in Serum or Plasma Alanine 12 - 78 U/L Normal No Mar 19 aminotran 2016 sferase on in 11:20 PM [Enzymati source c data activity/ volume] in Serum or Plasma Protein 6.4 - 8.2 gm/dL Normal No Mar 19 [Mass/vol informati 2016 ume] in on in 11:20 PM Serum or source Plasma data Lipase [Enzymatic activity/volume] in Serum or Plasma Observa Value Referen Units Interpr Notes Date tion ce etation Range Lipase 73 - 393 U/L Normal No Mar 19 [Enzymati informati 2017 c on in 11:20 PM activity/ source volume] data in Serum or Plasma Comprehensive metabolic 2000 panel in Serum or Plasma Observa Value Referen Units Interpr Notes Date tion ce etation Range Albumin/G 1.1 - 1.8 No Low No Mar 19 lobulin informati informati 2016 5:25 [Mass on in on in PM ratio] in source source Serum or data data Plasma Albumin 3.4 - 5.0 gm/dL Normal No Mar 19 [Mass/vol informati 2017 5:25 ume] in on in PM Serum [...] High No Mar 19 e 1.30 informati 2016 5:25 [Mass/vol on in PM ume] in source Serum or data Plasma Creatinin 50 - 200 ML/MIN Normal No Mar 19 e renal informati 2016 5:25 clearance on in PM source predicted data by Cockcroft -Gault formula Estimated >60 ML/MIN No REFERENCE Mar 19 informati RANGE: 2017 5:25 glomerula on in [...] 3.5 - 5.1 mmoL/L Normal No Mar 19 informati 2016 5:25 [Moles/vo on in PM lume] in [...] 8.2 gm/dL Normal No Mar 19 [Mass/vol inform2016 5:25 ume] in on in PM Serum or source Plasma data CBC W Auto Differential panel in Blood Observa Value Referen Units Interpr Notes Date tion ce etation Range Basophils 0 - 0.2 K/MM3 Normal No Mar 192016 5:25 [#/volume on in PM ] in source Blood by data Automated count Basophils 0.1 - 2.0 % Normal No Mar 19 inform2016 5:25 leukocyte on in PM s in source Blood by data Automated count Eosinophi 0.0 - 0.4 K/mm3 Normal No Mar 19 ls 2016 5:25 [#/volume on in PM ] in source Blood by data Automated count Eosinophi 0.1 - % Normal No Mar 19 ls/100 12.0 inform2016 5:25 leukocyte on in PM s in [...] Normal No Mar 19 t [Volume 52.0 2016 5:25 on in PM Fraction] source of Blood data Hemoglobi 14.1 - g/dL Normal No Mar 19 n 18.0 inform2016 5:25 [Mass/vol on in PM ume] in source Blood data Lymphocyt 0.7 - 4.5 K/mm3 Normal No Mar 19 es 2016 5:25 [#/volume on in PM ] in source Unspecifi data ed specimen by Automated count Lymphocyt 10 - 50 % Normal No Mar 19 es informati 2016 [...] - 1.0 K/mm3 Normal No Mar 19 informati 2016 5:25 [#/volume on in PM ] in source Blood by data Automated count Monocytes 1.7 - 9.3 % Normal No Mar 19 /100 informati 2016 5:25 leukocyte on in PM [...] Normal No Mar 19 te 17.5 informati 2016 5:25 distribut on in PM ion width source [Entitic data volume] by Automated count Leukocyte 4.8 - K/MM3 Normal No Mar 19 s 10.8 informati 2016 5:25 [#/volume on in PM ] in source Blood data
[2017-03-21 03:40] VITALS: BP 135/89
[2017-03-21 07:18] VITALS: BP 140/85
--- NOTE | 2017-03-21 08:24 | ACUTE CARE PROGRESS NOTE (QUA) ---
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 Multiple transverse process fractures 2. Intractable low back pain 3. Lumbar transverse process fracture 4. Rib fracture 5. DDD (degenerative disc disease), lumbar 6. Foraminal stenosis of lumbar region Patient condition Improving Plan: initiate discharge plan This inpt stay is expected to cross 2 MNs from start of care Yes Comments: will plan on d/c today at 0824
--- NOTE | 2017-03-21 08:24 | ACUTE CARE PROGRESS NOTE (QUA) ---
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 Multiple transverse process fractures 2. Intractable low back pain 3. Lumbar transverse process fracture 4. Rib fracture 5. DDD (degenerative disc disease), lumbar 6. Foraminal stenosis of lumbar region Patient condition Improving Plan: initiate discharge plan This inpt stay is expected to cross 2 MNs from start of care Yes Comments: will plan on d/c today at 0824
[2017-03-21] MEDS ORDERED: FLEXERIL10 MG PO (08:27)
[2017-03-21] MEDS ORDERED: NORVASC 5MG. TAB5 MG PO (08:30)
[2017-03-21 09:57] VITALS: BP 140/85
[2017-03-21 10:02] VITALS: BP 140/85
[2017-03-23] MEDS ORDERED: COLACE100 MG PO (10:34)
--- NOTE | 2017-03-24 17:18 | DISCHARGE SUMMARY STANDARD ---
Demographics Admit date: 03/19/17 Discharge date: 03/21/17 History of present illness History of present illness 47-year-old male presented to the ER 2. Patient first reported to the ER status post fall from a stepladder 7-8 foot. Fractures noted to the L1-L2 and L3 and RIGHT seventh rib fracture. Patient was discharged home while homeless sitting in a recliner taken a nap and woke up short of breath and severe pain. Patient presented back to the ER for further workup. Patient was admitted for irretractable pain. No bowel or bladder issues noted Hospital Course Hospital Course: mri- l spine fx ultrasound abd- neg pain control- pain mangement karyna thursday at 1015. Discharge diagnoses Problem List 1. Multiple transverse process fractures 2. Intractable low back pain 3. Lumbar transverse process fracture 4. Rib fracture 5. DDD (degenerative disc disease), lumbar 6. Foraminal stenosis of lumbar region Medications Medications: Discharge meds are as noted. Follow up Follow up in office in: 3 DAYS with: Adonay RAMSAY,Ammon Comment: cole woody at [phone]
== END 2017-03-21 10:18 | disposition home or self-care (01) ==
LOC: ER 23:07 → 2ND 23:52 → ER 23:52 → 2ND 03-20 00:30 → ER 03-20 01:11 → 2ND 03-21 10:18
PROVIDERS: Emergency Medicine
DX: S32.018A Other fracture of first lumbar vertebra, initial encounter for closed fracture (principal); S22.41XA Multiple fractures of ribs, right side, initial encounter for closed fracture; I10 Essential (primary) hypertension; S32.028A Other fracture of second lumbar vertebra, initial encounter for closed fracture; S32.038A Other fracture of third lumbar vertebra, initial encounter for closed fracture; W11.XXXA Fall on and from ladder, initial encounter; M51.36 Other intervertebral disc degeneration, lumbar region; M48.061 Spinal stenosis, lumbar region without neurogenic claudication
CPT/HCPCS: G0378; J2405